=== PATIENT | female | born 2005 | race African-American/Black ===

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

== ENCOUNTER 2024-04-26 12:07 | Emergency (ER) | payer MEDICAID, SELFPAY ==
[2024-04-26 12:09] VITALS: BP 132/87; PULSE 100; RESP 19; TEMP 36.6; O2SAT 99; BMI 47.5
--- NOTE | 2024-04-26 12:09 | ED.GENADULT ---
HPI - General Adult General Chief complaint: General Medical Stated complaint: nose bleeding, throat pain Time Seen by Provider: 04/26/24 12:26 Source: patient Mode of arrival: ambulatory Limitations: no limitations History of Present Illness ED Provider: Taina RUFF HPI narrative: 19-year-old female presents to ED for resolved epistaxis and sore throat. Patient has last had nosebleed 2 days ago. Patient denies any recent trauma, chest pain, shortness of breath. Patient denies any coughing up blood fever or chills. Patient states sore throat. Patient denies any drooling or change in voice. Related Data Home Medications ?Medication ?Instructions ?Recorded ?Confirmed buspirone 10 mg tablet 10 mg PO BID 11/01/22 11/01/22 dicyclomine 20 mg tablet 20 mg PO TID 11/01/22 11/01/22 sertraline 50 mg tablet 0 mg PO 11/01/22 11/01/22 Previous Rx's ?Medication ?Instructions ?Recorded ibuprofen 600 mg tablet 600 mg PO Q8H PRN pain #20 tabs 08/05/21 hydroxyzine HCl 50 mg tablet 50 mg PO TID PRN nausea and 05/30/22 vomiting #10 tabs penicillin V potassium 500 mg 500 mg PO BID 10 days #20 tabs 03/26/23 tablet amoxicillin 875 mg-potassium 1 tab PO Q12H 10 days #20 tabs 04/26/24 clavulanate 125 mg tablet naproxen 500 mg tablet 500 mg PO BID PRN pain 7 days #14 04/26/24 tabs Allergies Allergy/AdvReac Type Severity Reaction Status Date / Time No Known Allergies Allergy Verified 04/26/24 12:10 Review of Systems Review of Systems: Sore throat. Resolved epistaxis Yes all other systems are reviewed and are negative PMFSH Past Medical History Medical History Asthma Surgical History No pertinent past surgical history Social History Social History Advance Directives: No Advance Directives Information Provided: Yes Do you have a plan to hurt others: No Plan Physical Exam ED Vital Signs: Vital Signs - 24 hr 04/26/24 12:09 04/26/24 14:00 04/26/24 14:53 Temperature 98 F 98.3 F 98.3 F Pulse Rate 100 89 89 Respiratory Rate 19 16 16 Blood Pressure 132/87 129/75 129/75 Pulse Oximetry 99 100 100 Oxygen Delivery Method Room Air Room Air Room Air BMI result Body Mass Index 47.5 Const General: cooperative, healthy appearing, comfortable, no acute distress, well developed, alert, awake and Physically active Orientation/consciousness: patient oriented x3 [facility] Head: Yes normal to inspection, Yes No palpable skull fracture present, Yes normocephalic and Yes atraumatic Ears: hearing grossly normal bilaterally, external ears normal, TM's normal bilaterally, TM normal on the right, TM normal on the left, EAC's normal, mastoids normal and no periauricular adenopathy General nose exam: Normal external nose present, Normal nares present, No nasal polyps present, Normal nasal mucous membranes and turbinates present, Normal septum present and No nasal discharge present Face and sinus: Yes normal facial exam, Yes sinuses nontender and Yes face symmetric Throat: Yes posterior oropharynx normal, Yes tonsils normal and Yes uvula midline Eyes General: appearance normal, both eyes and all related structures Neck Neck: Yes normal visual inspection, Yes full ROM, Yes no lymphadenopathy, Yes no meningeal signs, Yes trachea midline, Yes supple, No anterior neck swelling and No tender Chest Chest palpation & inspection: normal inspection of the chest and normal palpation of entire chest wall Resp Effort & Inspection: normal respiratory effort and able to speak in complete sentences Auscultation: clear to auscultation bilaterally Cardio Jugular venous distension: no JVD Heart sounds: S1 normal heart sound present and S2 normal heart sound present GI Inspection: Yes normal to inspection Palpation (GI): Soft to palpation, not firm, nontender, no guarding and not rigid General: Yes no CVA tenderness Back/Spine/Pelvis Back: no CVA tenderness and No back tenderness Skin General skin exam: no rashes or lesions noted, elasticity normal and turgor normal Neuro General: patient oriented x3, gait normal, tone normal, moves all extremities, Normal light touch and pain sensation, no meningeal signs, no focal motor deficits, CN's II-XI intact bilaterally and normal sensation to monofilament Extrem General: Yes normal to inspection, Yes full ROM and Yes capillary refill normal Psych Appearance: grossly normal, well kempt and not disheveled Course Course Course Narrative: This is a rapid medical exam performed by Jany Keenan NP: Additional HPI, ROS, PE not included below will be deferred to primary provider. Patient is a 19-year-old female presenting to the ED with complaint of nasal irritation and nose bleed yesterday, sore throat began today. Plan: strep and viral serology Medical Decision Making Medical Decision Making MDM Narrative: 19-year-old female presents to the ED for resolved epistaxis without any trauma. Also states sore throat. Physical exam negative for any active epistaxis. Not suspecting peritonsillar abscess, retropharyngeal abscess, Eric's angina, posterior epistaxis, any other life-threatening etiology. Patient explained worrisome signs and informed to return to the ED immediately. Differential Diagnosis Differential Diagnoses: The differential diagnosis associated with the presentation includes (SARs strep COVID nose) Admission/Observation Consideration of admission/observation: Escalation of care including admission/observation considered Lab Data MDM Lab Attestation statement: I reviewed the patient's lab results. Labs: Lab Results 04/26/24 Range/Units 13:14 Influenza Type A (PCR) NEGATIVE (Negative) Influenza Type B (PCR) NEGATIVE (Negative) RSV RNA Qual (PCR) NEGATIVE (Negative) SARS-CoV-2 RNA (RT-PCR) NEGATIVE (Negative) S. pyogenes GrpA [facility] Positive A (Negative) Independent Historian Clinical information obtained from an independent historian. History obtained from or confirmed by: Other (Patient) External Record Review External record reviewed: Other (Private) Discharge Plan Discharge Clinical Impression: Strep throat Patient Disposition: Home, Self-Care Instructions: Nosebleed (ED), Strep Throat (ED) Additional Instructions: You will be discharged with antibiotics for a strep throat. Return to the ED immediately for any drooling, change in voice, chest pain, shortness of breath, nosebleed, inability tolerate solid food/liquid, or any other concerning symptoms. Recommend follow up with primary care provider Prescriptions: New amoxicillin-pot clavulanate 875-125 mg tablet 1 tab PO Q12H 10 Days Qty: 20 0RF naproxen 500 mg tablet 500 mg PO BID PRN (Reason: pain) 7 Days Qty: 14 0RF No Action hydroxyzine HCl 50 mg tablet 50 mg PO TID PRN (Reason: nausea and vomiting) Qty: 10 0RF Rx Instructions: PRN anxiety ibuprofen 600 mg tablet 600 mg PO Q8H PRN (Reason: pain) Qty: 20 0RF penicillin V potassium 500 mg tablet 500 mg PO BID 10 Days Qty: 20 0RF dicyclomine 20 mg tablet 20 mg PO TID buspirone 10 mg tablet 10 mg PO BID sertraline 50 mg tablet 0 mg PO Stand Alone Forms: Work/School Release Interventions: ED Discharge Assessment Last Done: 04/26/24 14:53 Discharge Date/Time: 04/26/24 14:53 Print Language: Spanish
[2024-04-26 13:57] LABS: IDNOW Serial# 58CA691E; Strep A Nucleic Acid Positive (Negative)
[2024-04-26 14:00] VITALS: BP 129/75; PULSE 89; RESP 16; TEMP 36.8; O2SAT 100
[2024-04-26 14:05] LABS: Influenza A PCR NEGATIVE (Negative); Influenza B PCR NEGATIVE (Negative); Resp Syncy Virus RNA Qual PCR NEGATIVE (Negative); SARS COV2 PCR INHOUSE NEGATIVE (Negative)
[2024-04-26 14:53] VITALS: BP 129/75; PULSE 89; RESP 16; TEMP 36.8; O2SAT 100
== END 2024-04-26 14:53 | disposition home or self-care (01) ==
PROVIDERS: Registered Nurse Emergency; Emergency Provider Emergency Medicine Emergency Medical Services; PCP Pediatrics
DX: J02.0 Streptococcal pharyngitis (principal); Z03.818 Encounter for observation for suspected exposure to other biological agents ruled out; Z79.899 Other long term (current) drug therapy
CPT/HCPCS: 0241U; 87651; 99283

== ENCOUNTER 2024-05-29 16:17 | Outpatient (REF) | payer MEDICAID, SELFPAY ==
--- OUTSIDE RECORDS SUMMARY | 2024-05-29 16:42 | XMS_ITS | Encounter Summary ---
Author Organization [employer] Address [address] [place] [address] [place] [address] Care Team Providers Care Isolation Washer Name Role Phone Joylnn Urban MD Primary Care Provider [phone] Reason for Visit * Reason Onset Date Comments Nurse Triage 05/29/2024 Encounter Details Date Type Department Care Team ([facility] st Contact Info) Description 05/29/2024 Telephone [facility] CHC MED & PEDS [address] [place], [place] [phone] Jolynn Urban MD [address] [place], [place] [phone] Nurse Triage Social History Tobacco Use Types Packs/Day Years Used Date Smoking Tobacco: Never Passive Smoke Exposure: Never Smokeless Tobacco: Never Depression Answer Date Recorded Patient Health Questionnaire-9 Score 11 10/18/2022 Depression Answer Date Recorded Patient Health Questionnaire-2 Score 4 10/18/2022 Comments Unknown Sex and Gender Information Value Date Recorded Sex Assigned at Female 08/30/2022 2:40 PM EDT Legal Sex Female 8:39 PM EDT Gender Identity Female 08/30/2022 2:40 PM EDT Sexual Orientation Straight 10/18/2022 4: 21 PM EDT documented as of this encounter Miscellaneous Notes * Telephone Encounter - Myra Treadwell RN - 05/29/2024 10:57 AM EST Call returned to Nahomy Mejia to triage below. Reports having right hand and wrist swelling x 2weeks. Pt denies any redness, rash or brusisng. No OTC meds taken. No injury or fall. Did not seek WIC. Is having new onset of wekaness, unable to hold a cup with liquid due to risk of falling out ofhand. Pt advised of disposition, agrees to [facility] appt. Protocol Used: Hand Pain (Adult) Protocol-Based Disposition: See in Office or Video Visit Today or Tomorrow Future Appointments Date Time Provider Department Center 05/29/2024 3:40 PM [facility] Insurance verified as active per Real Time Eligibility in [employer]. Positive Triage Question: * Weakness (i.e., loss of strength) of new-onset in hand or fingers * All higher-acuity triage questions were negative Care Advice Discussed: * Reasons To Call Back - Signs of infection occur (such as spreading redness, warmth, fever) - You become worse * Telephone Encounter - Alysia Zamora - 05/29/2024 9:57 AM EST Symptom: Hand or Wrist Swelling Outcome: Schedule an urgent appointment (within 1 hour) or talk to a nurse or provider soon Reason: Can't use the hand normally The caller accepted this outcome. documented in this encounter Plan of Treatment Not on file documented as of this encounter Visit Diagnoses Not on filedocumented in this encounter Additional Health Concerns Assessment Noted Time PHQ-9 Depression Total Score: 11 023 11:59 AM EDT documented as of this encounter Care Teams Isolation Washer Relationship Specialty Start Date End Date Jolynn Urban MD [address] [place] [phone] PCP - General Family Medicine 05/06/18 documented as of this encounter
--- OUTSIDE RECORDS SUMMARY | 2024-05-29 16:42 | XMS_ITS | Encounter Summary ---
Author Organization [employer] Address [address] [place] [address] 7 [place] [address] Care Team Providers Care General Repairer Name Role Phone Jolynn Urban MD Primary Care Provider [phone] Encounter Details Date Type Department Care Team (Latest Contact Info) Description 05/29/2024 Travel Social History Tobacco Use Types Packs/Day Years [...] PM EDT documented as of this encounter Plan of Treatment Not on file documented as of this encounter Visit Diagnoses Not on filedocumented in this encounter Additional Health Concerns Assessment Noted Time PHQ-9 Depression Total Score: 11 023 11:59 AM EDT documented as of this encounter Care Teams General Repairer Relationship Specialty Start Date End Date Jolynn Urban MD [address] [place] [address] PCP - General Family Medicine 05/06/18 documented as of this encounter
--- OUTSIDE RECORDS SUMMARY | 2024-05-29 16:42 | XMS_ITS | Clinical Summary ---
Author Organization [employer] Address [address] [place] [address] Care Team Providers Care Senior Maintenance Technician Name Role Phone Jolynn Urban MD Primary Care Provider [phone] Allergies No known active allergies Medications Omeprazole 20 MG Tablet Delayed Release Dispersible Take 1 tab orally daily 30 tablet 1 4 Active ergocalciferol (Vitamin D2) 1.25 MG (58441 UT) capsuleIndicatio ns:Vitamin D deficiency Take 1 capsule (1.25 mg) by mouth 1 (one) time per week. 15 capsule 4 Active sertraline (Zoloft) 50 MG tabletIndication s:Anxiety and depression Take 1/2 tablet orally every day for 1 week, then 1 tablet orally daily 30 tablet 11 4 Active dicyclomine (Bentyl) 20 MG tabletIndication s:Hx of irritable bowel syndrome Take 1 tab orally premeals tid 90 tablet 5 4 Active albuterol 108 (90 Base) MCG/ACT inhaler Inhale 2 puffs every 6 (six) hours if needed for wheezing. 18 g 4 03/09/20 25 Active Active Problems Problem Noted Date Diagnosed Date Chronic mood disorder 01/31/2018 Obesity 01/24/2012 Encounters Date Type Department Care Team Description 05/29/2024 3:40 PM EST Office Visit [facility] MED & PEDS [address] [place] [address] Nicola Jauregui MD Right wrist pain (Primary Dx); Trigger index finger of right hand 05/29/2024 Travel 05/29/2024 Telephone [facility] CHC MED & PEDS [address] [place], [place] [phone] Jolynn Urban MD Nurse Triage 05/04/2024 Telephone [facility] CHC MED & PEDS [address] [place], [place] [phone] Jolynn Urban MD Nurse Triage 04/26/2024 Orders Only GENERIC EXTERNAL DATA DEPARTMENT Provider, Generic External Data 03/09/2024 Orders Only [facility] CHC MED & PEDS [address] [place] [address] Jolynn Urban MD 03/05/2024 Telephone [facility] MEDICINE [address] [place], [place] [phone] Jolynn Urban MD Medication Question from Last 3 Months Immunizations Name Administration Dates Next Due DTaP 04/08/2008,10/23/2005 DTaP / Hep B / IPV 2004,2004, 004 HPV 9-Valent 01/19/2016,06/07/2015,04/05/2015 Hep A, ped/adol, 2 dose 06/07/2015,02/18/2014 Hep B, Adolescent or Pediatric 2004,2003 Hib (HbOC) 10/23/2005, 5,2004,03/16 IPV 04/08/2008 Influenza injectable quadriv alent preservative free 02/09/2021,02/04/2019,01/31/2018,01/29,01/19/2016 Influenza live intranasal qu adrivalent LIAV4 04/05/2015 Influenza, Split (incl. skylar fied surface antigen) 02/16/2013 Influenza, injectable, quadr ivalent, preservative free, pediatric 02/18/2014 Influenza, seasonal, injecta ble, preservative free 02/12/2024 MMR 04/08/2008,01/29/2005 Meningococcal MCV4P ACYW-135 02/09/2021,04/05/20 15 Pneumococcal Conjugate PCV 7 10/23/2005, 2004,2004,03/16 Tdap 04/05/2015 Varicella 04/08/2008,01/29/2005 Social History Tobacco Use Types Packs/Day Years Used Date Smoking Tobacco: Never Passive Smoke Exposure: Never Smokeless Tobacco: Never Tobacco Cessation:Counseling Given: Not Answered Depression Answer Date Recorded Patient Health Questionnaire-9 Score 11 10/18/2022 Depression Answer Date Recorded Patient Health Questionnaire-2 Score 4 10/18/2022 Comments Unknown Sex and Gender Information Value Date Recorded Sex Assigned at Female 08/30/2022 2:40 PM EDT Legal Sex Female 8:39 PM EDT Gender Identity Female 08/30/2022 2:40 PM EDT Sexual Orientation Straight 10/18/2022 4: 21 PM EDT Last Filed Vital Signs Vital Sign Reading Time Taken Comments Blood Pressure 132/74 05/29/2024 3:50 PM EST Pulse 80 05/29/2024 3:50 PM EST Temperature 37 ??C (98.6 ??F) 05/29/2024 3:50 PM EST Respiratory Rate 20 05/29/2024 3:50 PM EST Oxygen Saturation 98% 05/29/2024 3:50 PM EST Inhaled Oxygen Concentration - - Weight 130 kg (287 lb 9.6 oz) 05/29/2024 3:50 PM EST Height 157.5 cm (5' 2 ) 05/29/2024 3:50 PM EST Body Mass Index 52.6 05/29/2024 3:50 PM EST Plan of Treatment Health Maintenance Due Date Last Done Comments Chlamydia and Gonorrhea Screening 2004 HIV Screening 2004 SDOH Screening 2004 Pneumococcal Vaccine: Pediatrics (0 to 5 Years) and At-Risk Patients (6 to 64 Years) (1 of 2 - PCV) 01/16/2010 10/23/2005, 2004, 2004, Additional history exists Alcohol/Substance Use Screening 2016 Family Planning (PISQ) 01/16/2019 Hepatitis C Screening 01/16/2022 Depression Monitoring (PHQ-9) 04/19/2023 10/18/2022, 10/18/2022 Depression Screening 10/19/2023 10/18/2022, 10/19/19 23 COVID-19 Vaccine ( - season) 2024 09/17/2020, 08/20/2020 DTaP/Tdap/Td Vaccines (7 - Td or Tdap) 04/05/2025 04/05/2015, 04/08/2008, 10/23/2005, Additional history exists Tobacco Screening 05/29/2025 05/29/2024 Lipid Panel 10/19/2027 10/18/2022, 02/09/2021 Zoster Vaccines (1 of 2) 01/16/2054 RSV Patients and Patients Aged 60 years or older (1 - 1-dose 75+ series) 01/16/2079 Hepatitis B Vaccines Completed 2004, 2004, 2004, Additional history exists HIB Vaccines Completed 10/23/2005, 07/05, 2004, Additional history exists IPV Vaccines Completed 04/08/2008, 07/05, 2004, Additional history exists Hepatitis A Vaccines Completed 06/07/2015, 02/19/20 14 HPV Vaccines Completed 01/19/2016, 06/2015, 04/05/2015 Meningococcal Vaccine Completed 02/09/2021, 015 Influenza Vaccine Completed 02/12/2024, , 02/04/2019, Additional history exists RSV under 20 months Aged Out No longe r eligible based on patient's age to complete this topic Rotavirus Vaccines Aged Out No longer eligible based on patient's age to complete this topic Procedures Procedure Name Priority Date/Time Associated Diagnosis Comments SARS COV2/INFLUENZA A/B AND RSV RNA QL NAAT Routine 04/26/2024 1:14 PM EST STREP A NUCLEIC ACID Routine 04/26/2024 1:14 PM EST LIPID PANEL, STANDARD Routine 10/18/2022 11:58 AM EDT Hx of irritable bowel syndrome Arthralgia of both hands from Last 3 Months or Most Recently Relevant to Health Maintenance Results * (ABNORMAL) Strep A Nucleic Acid (04/26/2024 1:14 PM EST) IDNOW SERIAL# [id number] [facility] Strep A Nucleic Acid Positive(A ) Negative [facility] Comment:All test results mus t be correlated with clinical findings.This test has not been evaluated for monitoring treatment ofinfection.Additional follow-up testing using the culture method isrequired if the result is negative and clinical symptomspersist, or in the event of an acute rheumatic feveroutbreak. 04/26/2024 1:14 PM EST 04/26/2024 1:18 PM EST Generic External Data Provider LAB MICROBIOLOGY - GENERAL ORDERABLES Final Result Performing Organization Address [facility] Co de Phone Number [facility] [address] [place] [phone] * SARS-CoV-2 RNA, Influenza A/B, and RSV RNA, Ql NAAT (04/26/2024 1:14 PM EST) Pathologist [facility] Influenza A PCR NEGATIVE Negative [facility] Influenza B PCR NEGATIVE Negative [facility] Resp Syncy Virus RNA Qual PCR NEGATIVE Negative [facility] SARS COV2 PCR NEGATIVE Negative [facility] Comment:All test results mus t be correlated with clinical findings.Negative results do not preclude SARS-CoV2, influenza Avirus, influenza B virus and/or RSV infectionand should not be used as the sole basis for treatment orother patient management decisions. Negative results must becombined with clinical observations, patient history, andepidemiological information.This test has not been evaluated for monitoring treatment ofinfection.This test has been authorized by the FDA under an EmergencyUse Authorization (EUA) for use by authorized laboratories.Testing performed on the [employer] GeneXpert utilizingreal-time RT-PCR.All SARS CoV2 and positive influenza A/B results arereported to [facility]. 04/26/2024 1:14 PM EST 04/26/2024 1:18 PM EST us Generic External Data Provider LAB MICROBIOLOGY - GENERAL ORDERABLES Final Result [facility] [address] [place] [address] [phone] * (ABNORMAL) Lipid Panel, Standard (10/18/2022 11:58 AM EDT) Cholesterol, Total 162 <170 mg/dL [facility] HDL Cholesterol 33(L) >45 mg/dL Ques t [employer] [facility] Triglycerides 90(H) <90 mg/dL [facility] LDL Cholesterol 111(H) <110 mg/dL (calc) [facility] Comment: LDL-C is now calculated using the Iker calculation, which is a validated novel method providing better accuracy than the Friedewald equation in the estimation of LDL-C. Tim SS et al. GONZALO. 2013;310(19): 4390-9299 (http://education.[employer]/faq/MEH773) Chol/HDLC Ratio 4.9 <5.0 (calc) [facility] Non-HDL Cholesterol 129(H) <120 mg/dL (calc) [facility] Comment: For patients with diabetes plus 1 major ASCVD risk factor, treating to a non-HDL-C goal of <100 mg/dL (LDL-C of <70 mg/dL) is considered a therapeutic option. Blood Venous blood specimen / Unknown 10/18/2022 11:58 AM EDT 10/18/2022 11:59 AM EDT Narrative [facility] - 10/22/2022 12:21 PM EDT FASTING:YES FASTING: YES us Jolynn Urban MD LAB BLOOD ORDERABLES Final Re sult [facility] [address], [place] [address] [facility] [employer] [facility] [address] [place] [phone] from Last 3 Months or Most Recently Relevant to Health Maintenance Insurance [facility] C3 Care Teams Senior Maintenance Technician Relationship Specialty Start Date End Date Jolynn Urban MD [address] [place] [phone] PCP - General Family Medicine 05/06/18
--- OUTSIDE RECORDS SUMMARY | 2024-05-29 16:42 | XMS_ITS | Encounter Summary ---
Author Organization [employer] Address [address] [place] [address] [place] [address] Care Team Providers Care Medical Insurance Claims Processor Name Role Phone Jolynn Urban MD Primary Care Provider [phone] Reason for Visit * Reason Onset Date Comments Nurse Triage 05/04/2024 Encounter Details Date Type Department Care Team ([facility] st Contact Info) Description 05/04/2024 Telephone [facility] CHC MED & PEDS [address] [place], [place] [phone] Jolynn Urban MD [address] [place], [place] [phone] Nurse Triage Social History Tobacco Use Types [...] Telephone Encounter - Myra Treadwell RN - 05/04/2024 1:28 PM EST Call returned to Nahomy Mejia to triage below. Reports having right hand pain x 1 week. Having swelling of entire hand. No redness , rash or bruising. Pt able to open and close hand. Pt has weakness. No pain at shoulder or elbows. No injury or fall. Pt OTC pain relievers. Pt advised of disposition, no appts in [facility]. Reviewed [facility] operating hours and that wait times vary. Reviewed to call in on or Saturday for [facility] availability as schedule does not allow booking until day of. Reviewed home care advise, ER precautions and reasons to call back. Protocol Used: Hand Pain (Adult) Protocol-Based Disposition: See in Office or Video Visit Today or Tomorrow Positive Triage Question: * Weakness (i.e., loss of strength) of new-onset in hand or fingers * All higher-acuity triage questions were negative Care Advice Discussed: * Reassurance and Education - Hand Pain * Pain Medicines * Reasons To Call Back - Signs of infection occur (such as spreading redness, warmth, fever) - You become worse * Telephone Encounter - Alysia Zamora - 05/04/2024 12:52 PM EST Symptom: Hand or Wrist Pain - Not From Injury Outcome: Schedule an urgent appointment (within 1 hour) or talk to a nurse or provider soon Reason: Can't use the hand normally The caller accepted this outcome. documented in this encounter Plan of Treatment Not on file documented as of this encounter Visit Diagnoses Not on filedocumented in this encounter Additional Health Concerns Assessment Noted Time PHQ-9 Depression Total Score: 11 10/18/ 023 11:59 AM EDT documented as of this encounter Care Teams Medical Insurance Claims Processor Relationship Specialty Start Date End Date Jolynn Urban MD [address] [place] [phone] PCP - General Family Medicine 05/06/18 documented as of this encounter
--- OUTSIDE RECORDS SUMMARY | 2024-05-29 16:42 | XMS_ITS | Encounter Summary ---
Author Organization [employer] Address [address] [place] [address] 7 [place] [address] Care Team Providers Care Marketing Communications Associate Name Role Phone Jolynn Urban MD Primary Care Provider [phone] Reason for Referral * Consultation (Routine) - Pending Review Specialty Diagnoses / Procedures Referred By Riya zee Referred To Contact Orthopaedic Surgery Diagnoses Trigger index finger of right hand Nicola Jauregui MD [address] [place] [address] Phone: tel: fax: Referral ID Status Reason Start Date Expiration Date Visits Requested Visits Authorized [id number] Pending Review Specialty Services Required 05/29/2024 05/29/2025 1 1 Reason for Visit * Reason Comments Wrist Pain Encounter Details Date Type Department Care Team ([facility] st Contact Info) Description 05/29/2024 3:40 PM EST Office Visit [facility] CHC MED & PEDS [address] [place] [address] Nicola Jauregui MD [address] [place] [address] Right wrist pain (Primary Dx); Trigger index finger of right hand Social History Tobacco Use Types Packs/Day Years [...] PM EDT documented as of this encounter Last Filed Vital Signs Vital Sign Reading [...] Mass Index 52.6 05/29/2024 3:50 PM EST documented in this encounter Progress Notes * Nicola Jauregui MD - 05/29/2024 3:40 PM EST Subjective Patient ID: Nahomy Mejia is a 19 y.o. female who presents for Wrist Pain. Wrist Pain Pertinent negatives include no numbness. Patient is here complaining of several months of bilateral wrist discomfort more on the right than the left. She is also concerned about dropping heavy objects and right index finger locking. 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 No reported fever or other constitutional symptoms. Family history is positive for carpal tunnel in mother and grandmother Current Outpatient Medications on File Prior to Visit Medication Sig Dispense Refill albuterol 108 (90 Base) MCG/ACT inhaler Inhale 2 puffs every 6 (six) hours if needed for wheezing. 18 g 0 dicyclomine (Bentyl) 20 MG tablet Take 1 tab orally premeals tid 90 tablet 5 ergocalciferol (Vitamin D2) 1.25 MG (81677 UT) capsule Take 1 capsule (1.25 mg) by mouth 1 (one) time per week. 15 capsule 0 Omeprazole 20 MG Tablet Delayed Release Dispersible Take 1 tab orally daily 30 tablet 1 sertraline (Zoloft) 50 MG tablet Take 1/2 tablet orally every day for 1 week, then 1 tablet orally daily 30 tablet 11 No current facility-administered medications on file prior to visit. Review of Systems Constitutional: Negative for activity change, appetite change and chills. Respiratory: Negative for cough, choking and chest tightness. Cardiovascular: Negative for leg swelling. Neurological: Negative for seizures and numbness. Objective Physical Exam Constitutional: General: She is not in acute distress. Appearance: Normal appearance. She is obese. She is not ill-appearing, toxic- appearing or diaphoretic. Cardiovascular: Rate and Rhythm: Normal rate. Pulmonary: Effort: Pulmonary effort is normal. Musculoskeletal: Right wrist: Normal. Left wrist: Normal. Comments: Tinel's sign negative Assessment/Plan Diagnoses and all orders for this visit: Right wrist pain Comments: Advised to wear a cock up wrist brace especially at night Follow-up with PCP in 6 weeks Labs ordered. Patient will be contacted with results Orders: - Sed Rate by Modified Westergren; Future - C-reactive Protein; Future - Rheumatoid Factor; Future - KACEY Screen,IFA, with Reflex to Titer and Pattern; Future - XR Wrist 1-2 Views Right; Future Trigger index finger of right hand - Sed Rate by Modified Westergren; Future - C-reactive Protein; Future - Rheumatoid Factor; Future - KACEY Screen,IFA, with Reflex to Titer and Pattern; Future - Referral to Orthopaedic Surgery; Future documented in this encounter Plan of Treatment Scheduled Orders Name Type Priority Associated Diagnoses Orde r Schedule Sed Rate by Modified Westergren Lab Routine Right wrist pain Trigger index finger of right hand Expected: 05/29/2024, Expires: 05/29/2025 C-reactive Protein Lab Routine Right wrist pain Trigger index finger of right hand Expected: 05/29/2024 (Approximate), Expires: 05/29/2025 Rheumatoid Factor Lab Routine Right wrist pain Trigger index finger of right hand Expected: 05/29/2024, Expires: 05/29/2025 KACEY Screen,IFA, with Reflex to Titer and Pattern Lab Routine Right wrist pain Trigger index finger of right hand Expected: 05/29/2024 (Approximate), Expires: 05/29/2025 XR Wrist 1-2 Views Right Imaging Routine Right wrist pain Expected: 05/29/2024, Expires: 05/29/2025 Scheduled Referrals Name Type Priority Associated Diagnoses Order Schedule Referral to Orthopaedic Surgery Outpatient Referral Routine Trigger index finger of right hand Expected: 05/29/2024 (Approximate), Expires: 05/29/2025 documented as of this encounter Visit Diagnoses Diagnosis Right wrist pain- Primary Pain in joint, forearm Trigger index finger of right hand documented in this encounter Additional Health Concerns Assessment Noted Time PHQ-9 Depression Total Score: 11 023 11:59 AM EDT documented as of this encounter Care Teams Marketing Communications Associate Relationship Specialty Start Date End Date Jolynn Urban MD [address] [place] [phone] PCP - General Family Medicine 05/06/18 documented as of this encounter
--- OUTSIDE RECORDS SUMMARY | 2024-05-29 16:42 | XMS_ITS | Clinical Summary ---
Author Organization [facility] Address [address] [place] [address] Care Team Providers Care File Clerk Name Role Phone Unavailable Primary Care Provider Unavailabl e Social History Tobacco Use Types Packs/Day Years Used Date Smoking Tobacco: Never Assessed Sex and Gender Information Value Date Recorded Sex Assigned at Not on file Gender Identity Not on file Sexual Orientation Not on file Plan of Treatment Health Maintenance Due Date Last Done Comments Gonorrhea/Chlamydia Screening 2004 Varicella Vaccines (1 of 2 - 13+ 2-dose series) 01/16/2017 HPV Vaccines (1 - 3-dose series) 01/16/2019 Annual Well Child Visit (3-2 1 years old) 04/08/2022 Depression Screening 04/08/2022 HIV Screening 04/08/2022 Hepatitis C Screening 04/08/2022 Social Influencers of Health Screening 04/08/2022 DTaP,Tdap,and Td Vaccines (1 - Tdap) 01/16/2023 Hepatitis B Vaccines (1 of 3 - 19+ 3-dose series) 01/16/2023 COVID-19 Vaccine ( - 2023-2 5 season) 2024 Influenza Vaccine (#1) 2024 HIB Vaccines Aged Out No longer eligi ble based on patient's age to complete this topic Hepatitis A Vaccines Aged Out No long er eligible based on patient's age to complete this topic IPV Vaccines Aged Out No longer eligi ble based on patient's age to complete this topic MMR Vaccines Aged Out No longer eligi ble based on patient's age to complete this topic Meningococcal ACWY Vaccine Aged Out N o longer eligible based on patient's age to complete this topic Pneumococcal Vaccine: Pediat rics (0 to 5 Years) and At-Risk Patients (6 to 64 Years) Aged Out No longer eligible b ased on patient's age to complete this topic RSV Immunization Patients Un yesy 20 months Aged Out No longer eligible b ased on patient's age to complete this topic
[2024-05-29 17:47] LABS: C Reactive Protein 1.19 mg/dL (< or = 0.50)
[2024-05-29 18:00] LABS: Rheumatoid Factor < 13.0 IU/mL (<15.0)
[2024-05-29 18:24] LABS: Erythrocyte Sedimentation Rate 19 MM/HR (0-20)
[2024-06-01 15:55] LABS: Anti Nuclear Antibody Screen NEGATIVE (NEGATIVE)
== END 2024-05-29 16:18 | disposition home or self-care (01) ==
LOC: HO.CHCLDS 16:17
PROVIDERS: Visit Provider Internal Medicine
DX: M25.531 Pain in right wrist (principal); M65.321 Trigger finger, right index finger
CPT/HCPCS: 36415; 85652; 86038; 86140; 86431

== ENCOUNTER 2025-03-25 10:41 | Outpatient (REF) | payer MEDICAID, SELFPAY ==
--- OUTSIDE RECORDS SUMMARY | 2025-03-25 10:00 | XMS_ITS | Encounter Summary ---
Author Organization [employer] Address [address] [place] [phone] Care Team Providers Care Back Stayer Name Role Phone Jolynn Urban MD Primary Care Provider [phone] Encounter Details Date Type Department Care Team (Latest Contact Info) Description 03/25/2025 10:00 AM EST Procedure Visit [facility] [address] [place], [place] [phone] Jolynn Urban MD [address] [place] [phone] Encounter for gynecological examination (general) (routine) without abnormal findings (Primary Dx); Vitamin D deficiency; Hx of irritable bowel syndrome; Encounter for immunization; Class 3 severe obesity with body mass index (BMI) of 50.0 to 59.9 in adult, unspecified obesity type, unspecified whether serious comorbidity present (HCC) Social History Tobacco Use Types Packs/Day Years Used Date Smoking Tobacco: Never Passive Smoke Exposure: Never Smokeless Tobacco: Never Depression Answer Date Recorded Patient Health Questionnaire-9 Score 11 10/18/2022 Depression Answer Date Recorded Patient Health Questionnaire-2 Score 4 10/18/2022 Comments No Sex and Gender Information Value Date Recorded Sex Assigned at Female 08/30/2022 2:40 PM EDT Legal Sex Female 8:39 PM EDT Gender Identity Female 08/30/2022 2:40 PM EDT Sexual Orientation Straight 10/18/2022 4: 21 PM EDT documented as of this encounter Last Filed Vital Signs Vital Sign Reading Time Taken Comments Blood Pressure 126/78 03/25/2025 10:02 AM EST Pulse 88 03/25/2025 10:02 AM EST Temperature 36.3 C (97.4 F) 03/25/2025 10:02 AM EST Respiratory Rate 20 03/25/2025 10:02 AM EST Oxygen Saturation - - Inhaled Oxygen Concentration - - Weight 130 kg (287 lb) 03/25/2025 10:02 AM EST Height - - Body Mass Index 50.84 08/14/2024 3:46 PM EDT documented in this encounter Plan of Treatment Upcoming Encounters Date Type Department Care Team ([facility] st Contact Info) Description 06/23/2025 10:15 AM EST Office Visit [facility] [address] [place], [place] [phone] Jolynn Urban MD [address] [place] [address] Scheduled Orders Name Type Priority Associated Diagnoses Orde r Schedule Pap Smear Pathology and Cytology Routine Encounter for gynecological examination (general) (routine) without abnormal findings Ordered: 03/25/2025 documented as of this encounter Procedures Procedure Name Priority Date/Time Associated Diagnosis Comments BASIC METABOLIC PANEL, FASTING Routine 03/25/2025 10:42 AM EST Encounter for gynecological examination (general) (routine) without abnormal findings Vitamin D deficiency Hx of irritable bowel syndrome Encounter for immunization Class 3 severe obesity with body mass index (BMI) of 50.0 to 59.9 in adult, unspecified obesity type, unspecified whether serious comorbidity present (HCC) TSH W/REFLEX TO FT4 Routine 03/25/2025 1 0:42 AM EST Encounter for gynecological examination (general) (routine) without abnormal findings Vitamin D deficiency Hx of irritable bowel syndrome Encounter for immunization Class 3 severe obesity with body mass index (BMI) of 50.0 to 59.9 in adult, unspecified obesity type, unspecified whether serious comorbidity present (HCC) CBC WITH AUTO DIFFERENTIAL Routine 03/25/2025 10:42 AM EST Encounter for gynecological examination (general) (routine) without abnormal findings Vitamin D deficiency Hx of irritable bowel syndrome Encounter for immunization Class 3 severe obesity with body mass index (BMI) of 50.0 to 59.9 in adult, unspecified obesity type, unspecified whether serious comorbidity present (HCC) HEMOGLOBIN A1C Routine 03/25/2025 10:42 AM EST Encounter for gynecological examination (general) (routine) without abnormal findings Vitamin D deficiency Hx of irritable bowel syndrome Encounter for immunization Class 3 severe obesity with body mass index (BMI) of 50.0 to 59.9 in adult, unspecified obesity type, unspecified whether serious comorbidity present (HCC) HEPATIC FUNCTION PANEL Routine 03/25/2025 10:42 AM EST Encounter for gynecological examination (general) (routine) without abnormal findings Vitamin D deficiency Hx of irritable bowel syndrome Encounter for immunization Class 3 severe obesity with body mass index (BMI) of 50.0 to 59.9 in adult, unspecified obesity type, unspecified whether serious comorbidity present (HCC) LIPID PANEL, STANDARD Routine 03/25/2025 10:42 AM EST Encounter for gynecological examination (general) (routine) without abnormal findings Vitamin D deficiency Hx of irritable bowel syndrome Encounter for immunization Class 3 severe obesity with body mass index (BMI) of 50.0 to 59.9 in adult, unspecified obesity type, unspecified whether serious comorbidity present (HCC) BACTERIAL VAGINOSIS PANEL Routine 03/25/2025 10:20 AM EST Encounter for gynecological examination (general) (routine) without abnormal findings CHLAMYDIA/N. GONORRHOEAE RNA, TMA, UROGENITAL Routine 03/25/2025 10:20 AM EST Encounter for gynecological examination (general) (routine) without abnormal findings documented in this encounter Results * (ABNORMAL) Lipid Panel, Standard (03/25/2025 10:42 AM EST) Triglycerides 108 <150 mg/dL [facility] Comment:Desirable Triglyceri de: less than 150 mg/dLBorderline High Triglyceride 150-199 mg/dLHigh Triglyceride: 200-499 mg/dLVery High Triglyceride: greater than or equal to 5OO mg/dL Cholesterol 168 <200 mg/dL [facility] Comment:Desirable Cholestero l: less than 200 mg/dLBorderline High Cholesterol: 200-239 mg/dLHigh Cholesterol: greater than 239 mg/dL LDL Cholesterol Calculated 114(H) <100 mg/dL [facility] Comment:Desirable LDL: less than 100 mg/dLNear Optimal/Above Optimal LDL: 110- 129 mg/dLBorderline High LDL: 130-159 mg/dLHigh LDL: 160-189 mg/dLVery High LDL: greater than or equal to 190 mg/dL HDL Cholesterol 33(L) >40 mg/dL [facility] Comment:Desirable HDL: great er than 40 mg/dL Note: This HDL assay may give artificially low results in patients with liver disease. Blood Venous blood specimen / Unknown 03/25/2025 10:42 AM EST 03/25/2025 2:02 PM EST Jolynn Urban MD LAB BLOOD ORDERABLES Final Re sult Performing Organization Address [facility] Co de Phone Number [facility] [address] [place] [phone] * TSH W/Reflex to FT4 (03/25/2025 10:42 AM EST) TSH reflex Free T4 1.19 0.32 - 4.0 uIU/mL [facility] Blood Venous blood specimen / Unknown 03/25/2025 10:42 AM EST 03/25/2025 2:02 PM EST Jolynn Urban MD LAB BLOOD ORDERABLES Final Re sult Performing Organization Address [facility] Co de Phone Number [facility] [address] [place] [phone] * Hepatic Function Panel (03/25/2025 10:42 AM EST) Bilirubin, Total 0.4 0.0 - 1.0 mg/dL [facility] Bilirubin, Direct 0.2 0.0 - 0.5 mg/dL [facility] Aspartate Amino Transferase 30 5 - 31 U/L [facility] Alanine Aminotransferase 18 0 - 31 U/L [facility] Total Protein 7.1 6.5 - 8.0 g/dL [facility] Albumin Level 3.7 3.5 - 5.0 g/dL [facility] Alkaline Phosphatase 79 39 - 117 U/L [facility] Blood Venous blood specimen / Unknown 03/25/2025 10:42 AM EST 03/25/2025 2:02 PM EST Jolynn Urban MD LAB BLOOD ORDERABLES Final Re sult Performing Organization Address [facility] de Phone Number [facility] [address] [place] [phone] * Hemoglobin A1c (03/25/2025 10:42 AM EST) Hemoglobin A1c 5.1 <6.0 % [facility] Comment:Hemoglobin A1C Refer ence Range Adults: 4.8 - 6.0 % Non diabetic: < 6.0 % Goal: < 7.0 %Additional Action Suggested: > 8.0 %Note: Hemoglobin A1c results are invalid for patients with abnormal amounts of HbF. Blood transfusions may impact the HbA1c concentration in the patient sample. Estimated Average Glucose 100 mg/dL [facility] Comment:eAG = Estimated ave rage glucose which is %A1C expressed asaverage glucose, using the formula of the [id number] Glucose study (ADAG), Diabetes Care, Vol.31,#8,Dec. 2007 Blood Venous blood specimen / Unknown 03/25/2025 10:42 AM EST 03/25/2025 2:02 PM EST Jolynn Urban MD LAB BLOOD ORDERABLES Final Re sult Performing Organization Address [facility] Co de Phone Number [facility] [address] [place] [phone] * (ABNORMAL) CBC auto differential (03/25/2025 10:42 AM EST) White Blood Count 7.5 4.8 - 10.8 X10*3/uL [facility] Red Blood Count 5.24 4.20 - 5.50 X10*6/uL [facility] Hemoglobin 13.8 12.0 - 16.0 g/dl [facility] Hematocrit 41.9 37.0 - 47.0 % [facility] Mean Corpuscular Volume 80.0 80.0 - 98.0 fL [facility] Mean Corpuscular Hemoglobin 26.3(L) 27.0 - 33.0 pg [facility] Mean Corpuscular HGB Conc 32.9 31.0 - 35.0 g/dl [facility] Red Cell Distribution Width 14.2 11.0 - 16.0 % [facility] Platelet Count 275 160 - 400 X10*3/uL [facility] Mean Platelet Volume 10.7 9.4 - 12.3 fL [facility] Neutrophils Percent Auto 56.8 45 - 73 % [facility] Imm Gran Pct Auto 0.3 0.0 - 0.4 % [facility] Lymphocytes Percent Auto 30.8 20 - 40 % [facility] Monocytes Percent Auto 6.5 2 - 11 % [facility] Eosinophils Percent Auto 5.1(H) 0 - 4 % [facility] Basophils Percent Auto 0.5 0 - 2 % [facility] NRBC Pct Auto 0.0 0.0 - 0.2 /100WBC [facility] Neutrophils Absolute Auto 4.3 2.0 - 8.3 x10*3/uL [facility] Imm Gran Abs Auto 0.02 0.00 - 0.03 X10*3/uL [facility] Lymphocytes Absolute Auto 2.3 1.2 - 4.9 X10*3/uL [facility] Monocytes Absolute Auto 0.5 0.1 - 1.2 X10*3/uL [facility] Eosinophils Absolute Auto 0.4 0.0 - 0.4 X10*3/uL [facility] Basophils Absolute Auto 0.0 0.0 - 0.2 X10*3/uL [facility] NRBC Abs Auto 0.000 0.0 - 0.012 X10*3/uL [facility] Blood Venous blood specimen / Unknown 03/25/2025 10:42 AM EST 03/25/2025 2:02 PM EST Jolynn Urban MD LAB BLOOD ORDERABLES Final Re sult Performing Organization Address [facility]/ZIP Co de Phone Number [facility] [address] [place] [phone] * (ABNORMAL) Basic Metabolic Panel, Fasting (03/25/2025 10:42 AM EST) Sodium 138 135 - 145 mmol/L [facility] Potassium 4.2 3.3 - 5.1 mmol/L [facility] Chloride 107 96 - 108 mmol/L [facility] Carbon Dioxide 25 22 - 29 mmol/L [facility] Anion Gap 10(L) 12 - 20 [facility] Urea Nitrogen (BUN) 10 9 - 16 mg/dL [facility] Creatinine, Serum 0.69 0.5 - 1.4 mg/dL [facility] Estimated Glomerular Filt Rate >60 [facility] Comment:Chronic Kidney Disea se: Estimated GFR < 60 mL/min/[id number] Kidney Disease: Estimated GFR < 15 mL/min/1.73m2 Glucose Fasting 85 60 - 99 mg/dL [facility] Calcium 9.1 8.4 - 10.2 mg/dL [facility] Blood Venous blood specimen / Unknown 03/25/2025 10:42 AM EST 03/25/2025 2:02 PM EST Jolynn Urban MD LAB BLOOD ORDERABLES Final Re sult Performing Organization Address [facility]/ZIP Co de Phone Number [facility] [address] [place] [phone] * Chlamydia/N. Gonorrhoeae RNA, TMA, Vaginal (03/25/2025 10:20 AM EST) CT PCR NOT DETECTED Not Detect. [facility] Comment:A not detected test result does not exclude the possibilityof infection because test results can be affected byimproper specimen collection, concurrent antibiotic therapy,or the number of organisms in the specimen which may bebelow the sensitivity of the test. As with many diagnostictests, results from the Xpert CT/NG assay should beinterpreted in conjunction with other laboratory andclinical data available to the clinician.Xpert CT/NG performance has not been evaluated in patientsless than 14 years of age. The assay should not be used forthe evaluationof suspected sexual abuse or for other medico-legalindications. Additional testing is recommended in anycircumstance when false positive or false negative resultscould lead to adverse medical, social or psychologicalconsequences. NG PCR NOT DETECTED Not Detect. [facility] Comment:A not detected test result does not exclude the possibilityof infection because test results can be affected byimproper specimen collection, concurrent antibiotic therapy,or the number of organisms in the specimen which may bebelow the sensitivity of the test. As with many diagnostictests, results from the Xpert CT/NG assay should beinterpreted in conjunction with other laboratory andclinical data available to the clinician.Xpert CT/NG performance has not been evaluated in patientsless than 14 years of age. The assay should not be used forthe evaluationof suspected sexual abuse or for other medico-legalindications. Additional testing is recommended in anycircumstance when false positive or false negative resultscould lead to adverse medical, social or psychologicalconsequences. Swab (Vaginal Swab) 03/25/2025 10:20 AM EST 03/25/2025 2:09 PM EST us Jolynn Urban MD LAB MICROBIOLOGY - GENERAL OR DERABLES Final Result [facility] [address] [place] [phone] * (ABNORMAL) Bacterial Vaginosis Panel (03/25/2025 10:20 AM EST) TRICHOMONAS VAGINALIS DETECTION BY PCR NOT DETECTED Not Detect [facility] BACTERIAL VAGINOSIS DETECTION BY PCR POSITIVE(A) Negative [facility] Comment:The BV organism targ ets of the Xpert Xpress MVP test can becommensal in women; Xpert Xpress MVP positive results forbacterial vaginosis should be considered in conjunction withother clinical and patient information to determine thedisease status. Organisms that are not detected by the XpertXpress MVP test have also been reported to be associatedwith BV and aerobic vaginitis.The Xpert Xpress MVP test performance has not been evaluatedin patients under the age of 14. MAGUI GROUP DETECTION BY PCR NOT DETECTED Not Detect [facility] Magui glab krusei PCR NOT DETECTED Not Detect [facility] Swab Vaginal structure / Unknown 03/25/2025 10:20 AM EST 03/25/2025 2:09 PM EST us Jolynn Urban MD LAB MICROBIOLOGY - GENERAL OR DERABLES Final Result [facility] [address] [place] [phone] documented in this encounter Visit Diagnoses Diagnosis Encounter for gynecological examination (general) (routine) without abnormal findings- Primary Vitamin D deficiency Hx of irritable bowel syndrome Encounter for immunization Class 3 severe obesity with body mass index (BMI) of 50.0 to 59.9 in adult, unspecified obesity type, unspecified whether serious comorbidity present (HCC) documented in this encounter Additional Health Concerns Assessment Noted Time PHQ-9 Depression Total Score: 11 10/18/ 023 11:59 AM EDT documented as of this encounter Care Teams Back Stayer Relationship Specialty Start Date End Date Jolynn Urban MD [address] [place] [phone] PCP - General Family Medicine 05/06/18 documented as of this encounter
[2025-03-25 14:06] LABS: MANUAL DIFF FLAG NO
[2025-03-25 14:16] LABS: Hematocrit 41.9 % (37.0-47.0); Hemoglobin 13.8 g/dl (12.0-16.0); Imm Gran Abs Auto 0.02 X10*3/uL (0.00-0.03); Imm Gran Pct Auto 0.3 % (0.0-0.4); Lymphocytes Absolute Auto 2.3 X10*3/uL (1.2-4.9); Mean Corpuscular HGB Conc 32.9 g/dl (31.0-35.0); Mean Corpuscular Hemoglobin 26.3 pg (27.0-33.0); Mean Corpuscular Volume 80.0 fL (80.0-98.0); NRBC Abs Auto 0.000 X10*3/uL (0.0-0.012); NRBC Pct Auto 0.0 /100WBC (0.0-0.2); Platelet Count 275 X10*3/uL (160-400); Red Blood Count 5.24 X10*6/uL (4.20-5.50); White Blood Count 7.5 X10*3/uL (4.8-10.8)
[2025-03-25 14:46] LABS: Alanine Aminotransferase 18 U/L (0-31); Albumin Level 3.7 g/dL (3.5-5.0); Alkaline Phosphatase 79 U/L (39-117); Anion Gap 10 (12-20); Aspartate Amino Transferase 30 U/L (5-31); Blood Urea Nitrogen 10 mg/dL (9-16); Calcium 9.1 mg/dL (8.4-10.2); Carbon Dioxide 25 mmol/L (22-29); Chloride 107 mmol/L (96-108); Cholesterol 168 mg/dL (<200); Estimated Glomerular Filt Rate > 60; HDL Cholesterol 33 mg/dL (>40); Potassium 4.2 mmol/L (3.3-5.1); Sodium 138 mmol/L (135-145); Total Protein 7.1 g/dL (6.5-8.0); Triglycerides 108 mg/dL (<150)
[2025-03-25 15:24] LABS: Bacterial Vaginosis PCR POSITIVE (Negative); Candida Group PCR NOT DETECTED (Not Detect); Candida glab krusei PCR NOT DETECTED (Not Detect); Trichomonas vaginalis PCR NOT DETECTED (Not Detect)
[2025-03-25 15:56] LABS: CT PCR NOT DETECTED (Not Detect.); NG PCR NOT DETECTED (Not Detect.)
--- OUTSIDE RECORDS SUMMARY | 2025-03-25 16:02 | XMS_ITS | Clinical Summary ---
Author Organization [employer] Address [address] [place] [address] Care Team Providers Care Legal Aid Name Role Phone Jolynn Urban MD Primary Care Provider [phone] Allergies No known active allergies Medications SUMAtriptan (Imitrex) 50 MG tablet Take 1 tablet (50 mg) by mouth 1 (one) time if needed for migraine for up to 1 dose. May repeat dose once in 2 hours if no relief. Do not exceed 2 doses in 24 hours. 9 tablet 1 12/26/19 25 Active albuterol 108 (90 Base) MCG/ACT inhaler Inhale 2 puffs every 6 (six) hours if needed for wheezing. 18 g 03/25/20 25 026 Active ergocalciferol (Vitamin D2) 1.25 MG (05438 UT) capsuleIndicat ions:Vitamin D deficiency Take 1 capsule (1.25 mg) by mouth 1 (one) time per week. 15 capsule 03/25/20 25 Active dicyclomine (Bentyl) 20 MG tabletIndicati ons:Hx of irritable bowel syndrome Take 1 tab orally premeals tid 90 tablet 5 03/25/20 25 Active topiramate (Topamax) 50 MG tablet Take 1 tablet (50 mg) by mouth Once per day. 90 tablet 1 03/25/20 25 Active ergocalciferol (Vitamin D2) 1.25 MG (46440 UT) capsuleIndicat ions:Vitamin D deficiency Take 1 capsule (1.25 mg) by mouth 1 (one) time per week. 15 capsule 02/12/20 24 025 Discontinued(Re order (will not trigger notification to Pharmacy)) dicyclomine (Bentyl) 20 MG tabletIndicati ons:Hx of irritable bowel syndrome Take 1 tab orally premeals tid 90 tablet 5 12/26/19 25 025 Discontinued(Re order (will not trigger notification to Pharmacy)) albuterol 108 (90 Base) MCG/ACT inhaler Inhale 2 puffs every 6 (six) hours if needed for wheezing. 18 g 12/26/19 025 Discontinued(Re order (will not trigger notification to Pharmacy)) Active Problems Problem Noted Date Diagnosed Date Chronic mood disorder 01/31/2018 Obesity 01/24/2012 Encounters Date Type Department Care Team Description 03/25/2025 10:00 AM EST Procedure Visit [facility] [address] [place] [address] Jolynn Urban MD Encounter for gynecological examination (general) (routine) without abnormal findings (Primary Dx); Vitamin D deficiency; Hx of irritable bowel syndrome; Encounter for immunization; Class 3 severe obesity with body mass index (BMI) of 50.0 to 59.9 in adult, unspecified obesity type, unspecified whether serious comorbidity present (HCC) 03/25/2025 Travel 12/25/2024 10:30 AM EDT Office Visit [facility] [address] [place] [address] Jolynn Urban MD Anxiety and depression (Primary Dx); Hx of irritable bowel syndrome; Dietary counseling; Exercise counseling; Chronic ear pain, right 12/25/2024 Travel 12/24/2024 Telephone [facility] [address] [place] [address] Jolynn Urban MD Nurse Triage from Last 3 Months Immunizations Immunization Administration Dates Next Due DTaP 04/08/2008,10/23/2005 DTaP [...] 02/18/2014 Influenza, seasonal, injecta ble, preservative free 03/25/2025,02/12/2024 MMR 04/08/2008,01/29/2005 Meningococcal MCV4P [id number] 02/09/2021,04/05/20 15 [...] 20 03/25/2025 10:02 AM EST Oxygen Saturation 98% 08/14/2024 3:46 PM EDT Inhaled Oxygen Concentration - - Weight 130 kg (287 lb) 03/25/2025 10:02 AM EST Height 160 cm (5' 3 ) 08/14/2024 3:46 PM EDT Body Mass Index 50.84 08/14/2024 3:46 PM EDT Plan of Treatment Upcoming Encounters Date Type Department Care Team ([facility] Contact Info) Description 06/23/2025 10:15 AM EST Office Visit [facility] [address] [place] [address] Jolynn Urban MD [address] [place] [address] Health Maintenance Due Date Last Done Comments HIV Screening 2004 SDOH Screening 2004 Alcohol/Substance Use Screening 2016 Family Planning (PISQ) 01/16/2019 Meningococcal B Vaccine (1 of 2 - Standard) 2020 Hepatitis C Screening 01/16/2022 Pneumococcal Vaccine: Pediatrics (0 to 5 Years) and At-Risk Patients (6 to 49) Years (1 of 2 - PCV) 01/16/2023 10/23/2005, 2004, 2004, Additional history exists Depression Monitoring 04/19/2023 10/18/2022, 023 COVID-19 Vaccine ( season) 2025 09/17/2020, 08/20/2020 Pap Smear 01/16/2025 DTaP/Tdap/Td Vaccines (7 - Td or Tdap) 04/05/2025 04/05/2015, 04/08/2008, 10/23/2005, Additional history exists Disability Screening 05/29/2025 05/29/2024 Chlamydia and Gonorrhea Screening 03/25/2026 03/25/2025, 07/08/2023, 07/08/2023, Additional history exists Tobacco Screening 03/25/2026 03/25/2025 Lipid Panel 03/25/2030 03/25/2025, 10/04, 02/09/2021 Zoster Vaccines (1 of 2) 01/16/2054 [...] Vaccine Completed 02/09/2021, 015 Influenza Vaccine Completed 03/25/2025, , 02/09/2021, Additional history exists RSV under 20 months Aged Out No longe r eligible based on patient's age to complete this topic Rotavirus Vaccines Aged Out No longer eligible based on patient's age to complete this topic Procedures Procedure Name Priority Date/Time Associated Diagnosis Comments LIPID PANEL, STANDARD Routine 03/25/2025 10:42 AM [...] type, unspecified whether serious comorbidity present (HCC) BASIC METABOLIC PANEL, FASTING Routine 03/25/2025 10:42 AM EST Encounter for gynecological examination (general) (routine) without abnormal findings Vitamin D deficiency Hx of irritable bowel syndrome Encounter for immunization Class 3 severe obesity with body mass index (BMI) of 50.0 to 59.9 in adult, unspecified obesity type, unspecified whether serious comorbidity present (HCC) CHLAMYDIA/N. GONORRHOEAE RNA, TMA, UROGENITAL Routine 03/25/2025 10:20 AM EST Encounter for gynecological examination (general) (routine) without abnormal findings BACTERIAL VAGINOSIS PANEL Routine 03/25/2025 10:20 AM EST Encounter for gynecological examination (general) (routine) without abnormal findings from Last 3 Months Results * (ABNORMAL) Basic Metabolic Panel, Fasting (03/25/2025 10:42 AM EST) Sodium 138 135 - 145 mmol/L [facility] Potassium 4.2 3.3 - 5.1 mmol/L [facility] Chloride 107 96 - 108 mmol/L [facility] Carbon Dioxide 25 22 - 29 mmol/L [facility] Anion Gap 10(L) 12 - 20 [facility] Urea Nitrogen (BUN) 10 9 - 16 mg/dL [facility] Creatinine, Serum 0.69 0.5 - 1.4 mg/dL [facility] Estimated Glomerular Filt Rate >60 [facility] Comment:Chronic Kidney Disea se: Estimated GFR < 60 mL/min/[id number] Kidney Disease: Estimated GFR < 15 mL/min/1.73m2 Glucose Fasting 85 60 - 99 mg/dL [facility] Calcium 9.1 8.4 - 10.2 mg/dL [facility] Blood Venous blood specimen / Unknown 03/25/2025 10:42 AM EST 03/25/2025 2:02 PM EST Jolynn Urban MD LAB BLOOD ORDERABLES Final Re sult Performing Organization Address [facility] Co de Phone Number [facility] [address] [place] [phone] * TSH W/Reflex to FT4 (03/25/2025 10:42 AM EST) Pathologist [facility] TSH reflex Free T4 1.19 0.32 - 4.0 uIU/mL [facility] Blood Venous blood specimen / Unknown 03/25/2025 10:42 AM EST 03/25/2025 2:02 PM EST Jolynn Urban MD LAB BLOOD ORDERABLES Final Re sult Performing Organization Address [facility] Co de Phone Number [facility] [address] [place] [phone] * (ABNORMAL) CBC auto differential (03/25/2025 10:42 AM EST) Pathologist [facility] White Blood Count 7.5 4.8 - 10.8 X10*3/uL [facility] Red Blood Count 5.24 4.20 - 5.50 X10*6/uL [facility] Hemoglobin 13.8 12.0 - 16.0 g/dl [facility] Hematocrit 41.9 37.0 - 47.0 % [facility] Mean Corpuscular Volume 80.0 80.0 - 98.0 fL [facility] Mean Corpuscular Hemoglobin 26.3(L) 27.0 - 33.0 pg [facility] Mean Corpuscular HGB Conc 32.9 31.0 - 35.0 g/dl [facility] Red Cell Distribution Width 14.2 11.0 - 16.0 % [facility] Platelet Count 275 160 - 400 X10*3/uL [facility] Mean Platelet Volume 10.7 9.4 - 12.3 fL [facility] Neutrophils Percent Auto 56.8 45 - 73 % [facility] Imm Gran Pct Auto 0.3 0.0 - 0.4 % [facility] Lymphocytes Percent Auto 30.8 20 - 40 % [facility] Monocytes Percent Auto 6.5 2 - 11 % [facility] Eosinophils Percent Auto 5.1(H) 0 - 4 % [facility] Basophils Percent Auto 0.5 0 - 2 % [facility] NRBC Pct Auto 0.0 0.0 - 0.2 /100WBC [facility] Neutrophils Absolute Auto 4.3 2.0 - 8.3 x10*3/uL [facility] Imm Gran Abs Auto 0.02 0.00 - 0.03 X10*3/uL [facility] Lymphocytes Absolute Auto 2.3 1.2 - 4.9 X10*3/uL [facility] Monocytes Absolute Auto 0.5 0.1 - 1.2 X10*3/uL [facility] Eosinophils Absolute Auto 0.4 0.0 - 0.4 X10*3/uL [facility] Basophils Absolute Auto 0.0 0.0 - 0.2 X10*3/uL [facility] NRBC Abs Auto 0.000 0.0 - 0.012 X10*3/uL [facility] Blood Venous blood specimen / Unknown 03/25/2025 10:42 AM EST 03/25/2025 2:02 PM EST us Jolynn Urban MD LAB BLOOD ORDERABLES Final Re sult [facility] [address], [place] [phone] * Hemoglobin A1c (03/25/2025 10:42 AM EST) Hemoglobin A1c 5.1 <6.0 % [facility] Comment:Hemoglobin A1C Refer ence Range Adults: 4.8 - 6.0 % Non diabetic: < 6.0 % Goal: < 7.0 %Additional Action Suggested: > 8.0 %Note: Hemoglobin A1c results are invalid for patients with abnormal amounts of HbF. Blood transfusions may impact the HbA1c concentration in the patient sample. Estimated Average Glucose 100 mg/dL [facility] Comment:eAG = Estimated ave rage glucose which is %A1C expressed asaverage glucose, using the formula of the Q5X-KjqtnhkSvrdgen Glucose study (ADAG), Diabetes Care, Vol.31,#8,2007 Blood Venous blood specimen / Unknown 03/25/2025 10:42 AM EST 03/25/2025 2:02 PM EST Jolynn Urban MD LAB BLOOD ORDERABLES Final Re sult [facility] [address] [place] [phone] * Hepatic Function Panel (03/25/2025 10:42 AM EST) Bilirubin, Total 0.4 0.0 - 1.0 mg/dL [facility] Bilirubin, Direct 0.2 0.0 - 0.5 mg/dL [facility] Aspartate Amino Transferase 30 5 - 31 U/L [facility] Alanine Aminotransferase 18 0 - 31 U/L [facility] Total Protein 7.1 6.5 - 8.0 g/dL [facility] Albumin Level 3.7 3.5 - 5.0 g/dL [facility] Alkaline Phosphatase 79 39 - 117 U/L [facility] Blood Venous blood specimen / Unknown 03/25/2025 10:42 AM EST 03/25/2025 2:02 PM EST us Jolynn Urban MD LAB BLOOD ORDERABLES Final Re sult Performing Organization Address [facility] Co de Phone Number [facility] [address] [place] [phone] * (ABNORMAL) Lipid Panel, Standard (03/25/2025 10:42 AM EST) Triglycerides 108 <150 mg/dL [facility] Comment:Desirable Triglyceri de: less than 150 mg/dLBorderline High Triglyceride 150-199 mg/dLHigh Triglyceride: 200-499 mg/dLVery High Triglyceride: greater than or equal to 5OO mg/dL Cholesterol 168 <200 mg/dL [facility] Comment:Desirable Cholestero l: less than 200 mg/dLBorderline High Cholesterol: 200-239 mg/dLHigh Cholesterol: greater than 239 mg/dL LDL Cholesterol Calculated 114(H) <100 mg/dL [facility] Comment:Desirable LDL: less than 100 mg/dLNear Optimal/Above Optimal LDL: 110- 129 mg/dLBorderline High LDL: 130-159 mg/dLHigh LDL: 160-189 mg/dLVery High LDL: greater than or equal to 190 mg/dL HDL Cholesterol 33(L) >40 mg/dL [facility] Comment:Desirable HDL: great er than 40 mg/dL Note: This HDL assay may give artificially low results in patients with liver disease. Blood Venous blood specimen / Unknown 03/25/2025 10:42 AM EST 03/25/2025 2:02 PM EST us Jolynn Urban MD LAB BLOOD ORDERABLES Final Re sult Performing Organization Address [facility]/ZIP Co de Phone Number [facility] [address] [place] [phone] * (ABNORMAL) Bacterial Vaginosis Panel (03/25/2025 10:20 AM EST) TRICHOMONAS VAGINALIS DETECTION BY PCR NOT DETECTED Not Detect [facility] BACTERIAL VAGINOSIS DETECTION BY PCR POSITIVE(A) Negative [facility] Comment:The BV organism targ ets of [...] DETECTION BY PCR NOT DETECTED Not Detect [facility] Magui glab krusei PCR NOT DETECTED Not Detect [facility] Swab Vaginal structure / Unknown 03/25/2025 10:20 AM EST 03/25/2025 2:09 PM EST us Jolynn Urban MD LAB MICROBIOLOGY - GENERAL OR DERABLES Final Result [facility] [address] [place] [phone] * Chlamydia/N. Gonorrhoeae RNA, TMA, Vaginal (03/25/2025 10:20 AM EST) CT PCR NOT DETECTED Not Detect. [facility] Comment:A not detected test result does [...] psychologicalconsequences. NG PCR NOT DETECTED Not Detect. [facility] Comment:A not detected test result does [...] MICROBIOLOGY - GENERAL OR DERABLES Final Result [facility] [address] [place] [phone] from Last [address] [place] [address] C3 Care Teams Legal Aid Relationship Specialty Start Date End Date Jolynn Urban MD [address] [place] [phone] PCP - General Family Medicine 05/06/18
--- OUTSIDE RECORDS SUMMARY | 2025-03-25 16:02 | XMS_ITS | Clinical Summary ---
Author Organization [facility] Address [address] [place] [address] Care Team Providers Care Biscuitware Brusher Name Role Phone Unavailable Primary Care Provider Unavailabl e Social History Tobacco Use Types Packs/Day Years Used Date Smoking Tobacco: Never Assessed Comments Unknown Sex and Gender Information Value Date Recorded Sex Assigned at Not on file Legal Sex Female 10:48 PM EST Gender Identity Not on file Sexual Orientation Not on file Plan of Treatment Health Maintenance Due Date Last Done Comments Gonorrhea/Chlamydia Screening 2004 HPV Vaccines (1 - 3-dose series) 01/16/2019 Meningococcal B Vaccine (1 o f 2 - Standard) 2020 Annual Well Child Visit (3-2 1 years old) 04/08/2022 HIV Screening 04/08/2022 Hepatitis C Screening 04/08/2022 Social Influencers of Health Screening 04/08/2022 DTaP,Tdap,and Td Vaccines (1 - Tdap) 01/16/2023 Hepatitis B Vaccines (1 of 3 - 19+ 3-dose series) 01/16/2023 Depression Screening 05/06/2024 COVID-19 Vaccine (1 - 2024-2 6 season) 2025 Influenza Vaccine (#1) 2025 Cervical Cancer Screening: P ap Smear 01/16/2025 RSV Immunization Adult Patie nts (1 - 1-dose 75+ series) 01/16/2079 HIB Vaccines Aged Out No longer eligi [...] 5 Years) and At-Risk Patients (6 to 49 Years) Aged Out No longer eligible b ased on patient's age to complete this topic RSV Immunization Patients Un yesy 20 months Aged Out No longer eligible b ased on patient's age to complete this topic Varicella Vaccines Aged Out No longer eligible based on patient's age to complete this topic
--- OUTSIDE RECORDS SUMMARY | 2025-03-25 16:03 | XMS_ITS | Encounter Summary ---
Author Organization [employer] Address [address] [place] [phone] Care Team Providers Care Refinery Operator Helper Cracking Unit Name Role Phone Jolynn Urban MD Primary Care Provider [phone] Encounter Details Date Type Department Care Team (Latest Contact Info) Description 03/25/2025 Travel Social History Tobacco Use Types Packs/Day [...] as of this encounter Plan of Treatment Upcoming Encounters Date Type Department Care Team (Late st Contact Info) Description 06/23/2025 10:15 AM EST Office Visit [facility] [address] [place] [address] Jolynn Urban MD [address] [place] [address] documented as of this encounter Visit Diagnoses Not on filedocumented in this encounter Additional Health Concerns Assessment Noted Time PHQ-9 Depression Total Score: 11 023 11:59 AM EDT documented as of this encounter Care Teams Refinery Operator Helper Cracking Unit Relationship Specialty Start Date End Date Jolynn Urban MD [address] [place] [phone] PCP - General Family Medicine 05/06/18 documented as of this encounter
--- OUTSIDE RECORDS SUMMARY | 2025-03-25 16:03 | XMS_ITS | Encounter Summary ---
Author Organization [employer] Address [address] [place] [address] Care Team Providers Care Life Sciences Teacher Name Role Phone Jolynn Urban MD Primary Care Provider [phone] Encounter Details Date Type Department Care Team ([facility] Contact Info) Description 06/02/2024 Orders Only [facility] [address] [place] [address] Nicola Jauregui MD [address] [place] [address] Social History Tobacco Use Types Packs/Day Years [...] Encounters Date Type Department Care Team (Late Contact Info) Description 06/23/2025 10:15 AM EST Office Visit [facility] [address] [place] [address] Jolynn Urban MD [address] [place] [address] documented as of this encounter Visit Diagnoses Not on filedocumented in this encounter Additional Health Concerns Assessment Noted Time PHQ-9 Depression Total Score: 11 023 11:59 AM EDT documented as of this encounter Care Teams Life Sciences Teacher Relationship Specialty Start Date End Date Jolynn Urban MD [address] [place] [address] PCP - General Family Medicine 05/06/18 documented as of this encounter
== END 2025-03-25 10:42 | disposition home or self-care (01) ==
LOC: HO.CHCLDS 10:41
PROVIDERS: Visit Provider Pediatrics
DX: Z01.419 Encounter for gynecological examination (general) (routine) without abnormal findings (principal); Z20.2 Contact with and (suspected) exposure to infections with a predominantly sexual mode of transmission; Z23 Encounter for immunization; E55.9 Vitamin D deficiency, unspecified; E66.813 Obesity, class 3; Z87.19 Personal history of other diseases of the digestive system; Z68.43 Body mass index [BMI] 50.0-59.9, adult
CPT/HCPCS: 36415; 80048; 80061; 80076; 81515; 83036; 84443; 85025; 87491; 87591; 88175